=== PATIENT | male | born 1975 ===

== ENCOUNTER 2016-07-15 10:58 | Emergency (ER) | payer OTHER ==
[2016-07-15 11:09] VITALS: RESP 18
[2016-07-15] MEDS ORDERED: ceFAZolin 1,000 MG VIAL IM STA (11:13)
--- NOTE | 2016-07-15 11:26 | XR ---
EXAMINATION TYPE: XR finger LT DATE OF EXAM: 07/15/2016 11:19 AM CLINICAL HISTORY: pain Third digit. TECHNIQUE: 3 views of the left third digit are submitted. COMPARISON: None FINDINGS: There is displaced subungual tuft fracture with soft tissue laceration noted. No evidence f or radiopaque foreign body. IMPRESSION: Open subungual tuft fracture.
--- NOTE | 2016-07-15 12:01 | ED ---
Wound/Laceration HPI - General Chief Complaint: Wound/Laceration Stated Complaint: laceration, [facility] Time Seen by Provider: 07/15/16 11:06 Source: patient, foot tender, RN notes reviewed Mode of arrival: ambulatory Limitations: language barrier - History of Present Illness Initial Comments: 41-year-old present emergency department for right hand third digit injury. Patient states he is looking please metal machine states her crush his finger. Patient's tetanus was updated last year. Patient is right-hand dominant. Patient states only distal portion and there is some active bleeding. Patient was seen at urgent care and sent here for further evaluation. - Related Data Home Medications Medication Instructions Recorded Confirmed Hydrochlorothiazide 25 mg PO DAILY 07/15/16 07/15/16 Previous Rx's Medication Instructions Recorded Cephalexin [Keflex] 500 mg PO Q6HR #40 cap 07/15/16 Hydrocodone/Acetaminophen [[place] 1 tab PO Q6HR PRN #20 tab 07/15/16 5-325] Allergies Allergy/AdvReac Type Severity Reaction Status Date / Time No Known Allergies Allergy Verified 07/15/16 11:21 Review of Systems ROS Statement: Those systems with pertinent positive or pertinent negative responses have been documented in the HPI. ROS Other: All systems not noted in ROS Statement are negative. Past Medical History Past Medical History: Hypertension History of Any Multi-Drug Resistant Organisms: None Reported Past Surgical History: No Surgical Hx Reported Past Psychological History: No Psychological Hx Reported Smoking Status: Never smoker Past Alcohol Use History: Occasional Past Drug Use History: None Reported General Exam Limitations: language barrier General appearance: alert, in no apparent distress Respiratory exam: Present: normal lung sounds bilaterally. Absent: respiratory distress, wheezes, rales, rhonchi, stridor Cardiovascular Exam: Present: regular rate, normal rhythm, normal heart sounds. Absent: systolic murmur, diastolic murmur, rubs, gallop, clicks Extremities exam: Present: other (Right hand third digit there is a partial avulsion, and mentation of the distal tip there is no active bleeding there is deformity noted and multiple laceration/crush type injury skin is dusky there is no tenderness proximal to the DIP patient has limited range of motion) Course Vital Signs 07/15/16 11:03 Temperature 98.1 F Pulse Rate 92 Respiratory 18 Rate Blood Pressure 151/96 O2 Sat by Pulse 97 Oximetry Medical Decision Making - Medical Decision Making 41-year-old male presented for crush type injury of his finger. I did discuss case with [facility] who recommend is cleaning the wound, antibiotics tetanus is not up-to-date and soft tissues splint and to follow-up with Dr. Duc Rosas on Friday.Patient offered pain meds, declines Disposition Clinical Impression: Crush injury to finger, Avulsion, finger tip, Finger fracture Disposition: HOME SELF-CARE Condition: Stable Instructions: Finger Fracture (ED), Finger Laceration (ED) Additional Instructions: Leave splint on and follow-up with orthopedics on Friday as directed.call office to schedule appointment. Please return to the Emergency Department if symptoms worsen or any other concerns. Prescriptions: Cephalexin [Keflex] 500 mg PO Q6HR #40 cap Hydrocodone/Acetaminophen [[place] 5-325] 1 tab PO Q6HR PRN #20 tab PRN Reason: Pain Referrals: Joon Kumar MD [Primary Care Provider] - 1-2 days Duc Levy DO [Doctor of Osteopathic Medicine] - 1-2 days Time of Disposition: 12:01
[2016-07-15] MEDS ORDERED: HYDROcodone/APAP 5-325MG 1 EACH TAB PO STA (12:23)
[2016-07-15 12:33] VITALS: BP 150/87; PULSE 80; TEMP 98.6
== END 2016-07-15 12:33 | disposition home or self-care (01) ==
LOC: EC 10:58
DX: S67.192A Crushing injury of right middle finger, initial encounter (principal); S62.633B Displaced fracture of distal phalanx of left middle finger, initial encounter for open fracture; I10 Essential (primary) hypertension; Z79.899 Other long term (current) drug therapy; W31.1XXA Contact with metalworking machines, initial encounter; Y92.69 Other specified industrial and construction area as the place of occurrence of the external cause
CPT/HCPCS: 99283; 96372; 73140; J0690